=== PATIENT | male | born 1955 | race Caucasian/White ===

== ENCOUNTER 2018-07-25 21:17 | Emergency (ER) | payer OTHER ==
[~2018-07-25] VITALS: Ht 180.3 cm; Wt 79.5 kg
[~2018-07-25 21:17] MED LIST: NO HOME MEDICATIONS
[2018-07-25 21:27] VITALS: BP 138/83; TEMP 97.4
[2018-07-25 22:41] VITALS: PULSE 52
== END 2018-07-25 22:42 | disposition home or self-care (01) ==
LOC: COL.ER 21:17
DX: S20.212A Contusion of left front wall of thorax, initial encounter (principal); V89.2XXA Person injured in unspecified motor-vehicle accident, traffic, initial encounter